=== PATIENT | male | born 1970 | race African-American/Black ===

== ENCOUNTER → 2017-05-10 | Outpatient (CLI) | payer MEDICARE ==
[2015-05-09 12:44] VITALS: BP 135/87
--- NOTE | 2017-05-11 15:44 | CARD ---
APPROVED REPORT EXAM: Two-dimensional and M-mode echocardiogram with Doppler and color Doppler. Other Information Quality : GoodHR: 75bpm Rhythm : NSR INDICATION Dilated cardiomyopathy RISK FACTORS Obesity 2D DIMENSIONS RVDd3.3 (2.9-3.5cm)Left Atrium(2D)4.6 (1.6-4.0cm) IVSd1.2 (0.7-1.1cm)Aortic Root(2D)3.3 (2.0-3.7cm) LVDd4.4 (3.9-5.9cm)LVOT Diameter2.5 (1.8-2.4cm) PWd1.3 (0.7-1.1cm)LVDs3.7 (2.5-4.0cm) FS (%) 16.3 %SV30.7 ml LVEF(%)35.0 (>50%) Aortic Valve AoV Peak Hood.105.5cm/sAoV VTI18.6cm AO Peak GR.4.5mmHgLVOT Peak Hood.74.5cm/s AO Mean GR.3mmHgAVA (VMAX)3.48cm2 Mitral Valve MV E Ykgtnvbv87.9cm/sMV E Peak Gr.1mmHg MV DECEL [id number] A Zjpvsldp33.2cm/s MV E Mean Gr.1mmHgE/A Ratio0.6 MV A [id number] Pulmonary Valve PV Peak Rcmqrtkx059.8cm/s Pulmonary Vein S1 Femnbajb70.6cm/sD2 Aidgzcxf45.1cm/s PVa [id number] LEFT VENTRICLE The left ventricle is normal size. There is mild concentric left ventricular hypertrophy. Left ventri anastasia systolic function is moderately impaired. The Ejection Fraction is 35%. There is moderate global hypokinesis of the left ventricle. Transmitral Doppler flow pattern is Grade I-abnormal relaxation pa ttern. No left ventricle thrombus noted on this study. RIGHT VENTRICLE The right ventricle is normal size. ATRIA The left atrium is mildly dilated. The right atrium size is normal. The interatrial septum is intact with no evidence for an atrial septal defect or patent foramen ovale as noted on 2-D or Doppler imagi ng. AORTIC VALVE The aortic valve is not well visualized but appears to open adequately. Doppler and Color Flow reveal ed no significant aortic regurgitation. There is no significant aortic valvular stenosis. MITRAL VALVE There is no evidence of mitral valve prolapse. There is no mitral valve stenosis. Doppler and Color F low revealed no mitral valve regurgitation noted. TRICUSPID VALVE Doppler and Color Flow revealed no tricuspid valve regurgitation noted, unable to determine pulmonary artery pressure at exam time. PULMONIC VALVE The pulmonary valve is not well visualized but appears to open adequately. Doppler and Color Flow rev ealed trace pulmonic valvular regurgitation. There is no pulmonic valvular stenosis by spectral Doppl er. GREAT VESSELS The aortic root is normal in size. The ascending aorta is normal in size. The pulmonary artery is nor mal. The IVC is normal in size and collapses >50% with inspiration. PERICARDIAL EFFUSION There is no evidence of significant pericardial effusion. Critical Notification Critical Value: No <Conclusion> Left ventricle systolic function is moderately impaired. The Ejection Fraction is 35%. There is mild concentric left ventricular hypertrophy. Transmitral Doppler flow pattern is Grade I-abnormal relaxation pattern. The left atrium is mildly dilated. The right atrium size is normal. The aortic valve is not well visualized but appears to open adequately. Doppler and Color Flow revealed no mitral valve regurgitation noted. Doppler and Color Flow revealed no tricuspid valve regurgitation noted, unable to determine pulmonary artery pressure at exam time. The pulmonary valve is not well visualized but appears to open adequately. Doppler and Color Flow revealed trace pulmonic valvular regurgitation. There is no pulmonic valvular stenosis by spectral Doppler. There is no evidence of significant pericardial effusion.
== END | disposition home or self-care (01) ==
LOC: ECHO 10:25
PROVIDERS: ATTEND Family Medicine
DX: I42.0 Dilated cardiomyopathy (principal); E66.9 Obesity, unspecified; I51.7 Cardiomegaly
CPT/HCPCS: 93306

== ENCOUNTER 2018-02-10 09:22 | Emergency (ER) | payer MEDICARE ==
[2018-02-10 09:34] LABS: POC GLUCOSE 135 mg/dL (70-99)
[2018-02-10 09:41] LABS: ADD MAN DIFF? NO
[2018-02-10 09:44] LABS: BASO % 1 % (0-3); EOS # 0.1 x10^3/uL (0.0-0.7); EOS % 2 % (0-3); HEMATOCRIT 47.3 % (39.0-53.0); HEMOGLOBIN 16.2 g/dL (13.0-17.5); LYMPH # 1.6 x10^3/uL (1.0-4.8); LYMPH % 27 % (24-48); MEAN CORPUSCULAR HEMOGLOBIN 30 pg (25-35); MEAN CORPUSCULAR HGB CONC 34 g/dL (31-37); MEAN CORPUSCULAR VOLUME 89 fL (79-100); MONO # 0.6 x10^3/uL (0.0-1.1); MONO % 10 % (0-9); NEUT # 3.6 x10^3uL (1.8-7.7); NEUT % 60 % (31-73); PLATELET COUNT 232 x10^3/uL (140-400); RED BLOOD COUNT 5.33 x10^6/uL (4.30-5.70); RED CELL DISTRIBUTION WIDTH 14.1 % (11.5-14.5)
[2018-02-10 09:52] LABS: ANION GAP 6 (6-14); BLOOD UREA NITROGEN 15 mg/dL (8-26); BUN/CREATININE RATIO 15 (6-20); CALCIUM 9.2 mg/dL (8.5-10.1); CARBON DIOXIDE 32 mmol/L (21-32); CHLORIDE 104 mmol/L (98-107); GFR 96.1; GLUCOSE 96 mg/dL (70-99); POTASSIUM 3.3 mmol/L (3.5-5.1); SODIUM 142 mmol/L (136-145)
[2018-02-10 09:58] LABS: ALBUMIN 3.5 g/dL (3.4-5.0); ALBUMIN/GLOBULIN RATIO 0.8 (1.0-1.7); ALK PHOS 130 U/L (46-116); ALT (SGPT) 59 U/L (16-63); AST (SGOT) 45 U/L (15-37); TOTAL BILIRUBIN 0.8 mg/dL (0.2-1.0); TOTAL PROTEIN 7.8 g/dL (6.4-8.2)
[2018-02-10 10:26] LABS: BILIRUBIN,URINE NEGATIVE (NEG); CLARITY,URINE CLEAR; COLOR,URINE YELLOW; GLUCOSE,URINE 100 mg/dL (NEG); NITRITE,URINE NEGATIVE (NEG); PH,URINE 5.5; PROTEIN,URINE NEGATIVE (NEG-TRACE); UROBILINOGEN,URINE 0.2 mg/dL (0.2 mg/dL)
[2018-02-10 10:32] LABS: HYALINE CASTS, URINE FEW /HPF; SQUAMOUS EPITHELIAL CELL,UR OCC /LPF
[2018-02-10 10:33] LABS: RBC,URINE 0 /HPF (0-2); WBC,URINE OCC /HPF (0-4)
[2018-02-10 10:34] LABS: BACTERIA,URINE 0 /HPF (0-FEW)
[2018-02-10 10:42] LABS: POC GLUCOSE 216 mg/dL (70-99)
== END 2018-02-10 10:51 | disposition home or self-care (01) ==
LOC: ER 09:22
DX: E11.649 Type 2 diabetes mellitus with hypoglycemia without coma (principal); E78.00 Pure hypercholesterolemia, unspecified; I11.0 Hypertensive heart disease with heart failure; I50.9 Heart failure, unspecified; Z79.4 Long term (current) use of insulin
CPT/HCPCS: 36415; 80053; 81001; 82962; 85025; 99284

== ENCOUNTER 2018-05-03 12:19 | Inpatient (IN) | payer MEDICARE ==
[~2018-05-03] VITALS: Ht 172.7 cm; Wt 136.1 kg
[2018-05-03 12:54] LABS: BASO % 0 % (0-3); EOS # 0.1 x10^3/uL (0.0-0.7); EOS % 1 % (0-3); HEMATOCRIT 44.7 % (39.0-53.0); HEMOGLOBIN 15.4 g/dL (13.0-17.5); LYMPH # 1.3 x10^3/uL (1.0-4.8); LYMPH % 25 % (24-48); MEAN CORPUSCULAR HEMOGLOBIN 30 pg (25-35); MEAN CORPUSCULAR HGB CONC 34 g/dL (31-37); MEAN CORPUSCULAR VOLUME 88 fL (79-100); MONO # 0.4 x10^3/uL (0.0-1.1); MONO % 8 % (0-9); NEUT # 3.2 x10^3uL (1.8-7.7); NEUT % 65 % (31-73); PLATELET COUNT 196 x10^3/uL (140-400); RED CELL DISTRIBUTION WIDTH 13.8 % (11.5-14.5); WHITE BLOOD COUNT 4.9 x10^3/uL (4.0-11.0)
--- NOTE | 2018-05-03 12:54 | RAD ---
EXAM: Head CT without contrast. HISTORY: Right-sided facial droop. Headache. TECHNIQUE: Computed tomographic images of the head were obtained without contrast. *One or more of the following individualized dose reduction techniques were utilized for this examination: 1. Automated exposure control. 2. Adjustment of the mA and/or kV according to patient size. 3. Use of iterative reconstruction technique. COMPARISON: 01/04/2009. FINDINGS: There is no acute or subacute extra-axial or intraparenchymal hemorrhage. There is no mass effect or midline shift. There is no hydrocephalus. There are areas of decreased attenuation within the cerebral white matter, nonspecific and likely related to chronic small vessel disease. There is focal hypodensity within the right occipital lobe likely due to chronic infarction. The visualized portions of the orbits, paranasal sinuses and mastoid air cells are unremarkable. No suspicious calvarial lesion is seen. IMPRESSION: 1. No acute intracranial finding. Note is made that MRI is more sensitive for acute infarction. 2. 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 3. Subtle areas of hypodensity within the cerebral white, a nonspecific finding which may be artifactual or due to chronic small vessel disease. Electronically signed by: Josselin Doherty MD (05/03/2018 12:51 PM) [id number]
[2018-05-03 13:05] LABS: CALCIUM 9.4 mg/dL (8.5-10.1); CREATININE 0.9 mg/dL (0.7-1.3); GFR 108.5; POTASSIUM 3.6 mmol/L (3.5-5.1)
[2018-05-03 13:13] LABS: ALBUMIN 3.3 g/dL (3.4-5.0); ALBUMIN/GLOBULIN RATIO 0.8 (1.0-1.7); MAGNESIUM 1.8 mg/dL (1.8-2.4); TOTAL BILIRUBIN 0.5 mg/dL (0.2-1.0); TOTAL PROTEIN 7.6 g/dL (6.4-8.2)
[2018-05-03 13:33] LABS: PROTHROMBIN TIME PATIENT 13.4 SEC (11.7-14.0)
--- NOTE | 2018-05-03 13:42 | EKG ---
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
--- NOTE | 2018-05-03 15:29 | PHYS DOC ---
Past Medical History Past Medical History: CHF, Diabetes-Type II, High Cholesterol, Hypertension, Vascular Disease, Other Additional Past Medical Histor: VENOUS INSUFF Past Surgical History: No Surgical History Alcohol Use: None Drug Use: None Adult General Chief Complaint Chief Complaint: FACE PROBLEM HPI HPI Patient is a 47 year old male who presented to ER today for evaluation of headache, left side eye irritation and right side facial droop. Patient denies any fever, no slurred speech, no trouble talking, no trouble walking or any weakness or numbness anywhere. Patient said he started having some headache 2 days ago, had some left eye irritation at the same time. At noon today his family noted that he had right-sided facial droop. So he was brought here for evaluation. Patient denies any chest pain, no trouble breathing. Patient has history of hypertension, diabetic. Review of Systems Review of Systems Constitutional: Denies fever or chills [] Eyes: left eye irritation ,No redness, or eye pain [] HENT: Denies nasal congestion or sore throat [] Respiratory: Denies cough or shortness of breath [] Cardiovascular: No additional information not addressed in HPI [] GI: Denies abdominal pain, nausea, vomiting, bloody stools or diarrhea [] : Denies dysuria or hematuria [] Musculoskeletal: Denies back pain or joint pain [] Integument: Denies rash or skin lesions [] Neurologic: Positive for headache, right side facial droop. Endocrine: Denies polyuria or polydipsia [] All other systems were reviewed and found to be within normal limits, except as documented in this note. Allergies Allergies Allergies Coded Allergies Type Severity Reaction Last Updated Verified No Known Drug Allergies 05/09/15 No Physical Exam Physical Exam Constitutional: Well developed, well nourished, no acute distress, non-toxic appearance. [] HENT: Normocephalic, atraumatic, bilateral external ears normal, oropharynx moist, no oral exudates, nose normal. Positive for right side facial droop, involved right side forehead, patient can close his right eye but not completely shut. Eyes: PERRLA, EOMI, conjunctiva normal, no discharge. Neck: Normal range of motion, no tenderness, supple, no stridor. [] Cardiovascular:Heart rate regular rhythm, no murmur [] Lungs & Thorax: Bilateral breath sounds clear to auscultation [] Abdomen: Bowel sounds normal, soft, no tenderness, no masses, no pulsatile masses. [] Skin: Warm, dry, no erythema, no rash. [] Back: No tenderness, no CVA tenderness. [] Extremities: No tenderness, no cyanosis, no clubbing, ROM intact, no edema. [] Neurologic: Alert and oriented X 3, normal motor function, normal sensory function, PATIENT CAN MOVE ALL EXTREMITIES, NO ALTERED SENSATION, NO SLURRED SPEECH, NO APHASIA, NO DYSARTHRIA. Psychologic: Affect normal, judgement normal, mood normal. [] Current Patient Data Vital Signs Vital Signs Date Time Temp Pulse Resp B/P (MAP) Pulse Ox O2 Delivery O2 Flow Rate FiO2 05/03/18 14:00 78 16 142/86 (104) 96 Room Air 05/03/18 12:31 98.1 98.1 Lab Values Laboratory Tests Test 05/03/18 12:24 05/03/18 12:45 Glucose (Fingerstick) 258 mg/dL (70-99) H White Blood Count 4.9 x10^3/uL (4.0-11.0) Red Blood Count 5.10 x10^6/uL (4.30-5.70) Hemoglobin 15.4 g/dL (13.0-17.5) Hematocrit 44.7 % (39.0-53.0) Mean Corpuscular Volume 88 fL (79-100) Mean Corpuscular Hemoglobin 30 pg (25-35) Mean Corpuscular Hemoglobin Concent 34 g/dL (31-37) Red Cell Distribution Width 13.8 % (11.5-14.5) Platelet Count 196 x10^3/uL (140-400) Neutrophils (%) (Auto) 65 % (31-73) Lymphocytes (%) (Auto) 25 % (24-48) Monocytes (%) (Auto) 8 % (0-9) Eosinophils (%) (Auto) 1 % (0-3) Basophils (%) (Auto) 0 % (0-3) Neutrophils # (Auto) 3.2 x10^3uL (1.8-7.7) Lymphocytes # (Auto) 1.3 x10^3/uL (1.0-4.8) Monocytes # (Auto) 0.4 x10^3/uL (0.0-1.1) Eosinophils # (Auto) 0.1 x10^3/uL (0.0-0.7) Basophils # (Auto) 0.0 x10^3/uL (0.0-0.2) Prothrombin Time 13.4 SEC (11.7-14.0) Prothrombin Time INR 1.1 (0.8-1.1) PTT 25 SEC (24-38) Sodium Level 142 mmol/L (136-145) Potassium Level 3.6 mmol/L (3.5-5.1) Chloride Level 104 mmol/L (98-107) Carbon Dioxide Level 31 mmol/L (21-32) Anion Gap 7 (6-14) Blood Urea Nitrogen 16 mg/dL (8-26) Creatinine 0.9 mg/dL (0.7-1.3) Estimated GFR (Cockcroft-Gault) 108.5 BUN/Creatinine Ratio 18 (6-20) Glucose Level 242 mg/dL (70-99) H Calcium Level 9.4 mg/dL (8.5-10.1) Magnesium Level 1.8 mg/dL (1.8-2.4) Total Bilirubin 0.5 mg/dL (0.2-1.0) Aspartate Amino Transferase (AST) 38 U/L (15-37) H Alanine Aminotransferase (ALT) 67 U/L (16-63) H Alkaline Phosphatase 119 U/L (46-116) H Troponin I Quantitative 0.148 ng/mL (0.000-0.055) Total Protein 7.6 g/dL (6.4-8.2) Albumin 3.3 g/dL (3.4-5.0) L Albumin/Globulin Ratio 0.8 (1.0-1.7) L Laboratory Tests 05/03/18 12:45 Laboratory Tests 05/03/18 12:45 EKG EKG EKG read at 1318 no STEMI, SINUS RHYTHM, RATE OF 77 BPM. Radiology/Procedures Radiology/Procedures [[facility] [address] [place] [address] IMAGING REPORT Signed PATIENT: JUDGE Marek PAGE ACCOUNT: [id number] : 1970 LOCATION: ER AGE: 47 SEX: M EXAM STATUS: REG ER ORD. PHYSICIAN: AUGUST CAMPA DO REASON: HEADACHE, HYPERTENSION, RIGHT SIDE FACIAL DROOP PROCEDURE: CT HEAD WO CONTRAST EXAM: Head CT without contrast. HISTORY: Right-sided facial droop. Headache. TECHNIQUE: Computed tomographic images of the head were obtained without contrast. *One or more of the following individualized dose reduction techniques were utilized for this examination: 1. Automated exposure control. 2. Adjustment of the mA and/or kV according to patient size. 3. Use of iterative reconstruction technique. COMPARISON: 01/04/2009. FINDINGS: There is no acute or subacute extra-axial or intraparenchymal hemorrhage. There is no mass effect or midline shift. There is no hydrocephalus. There are areas of decreased attenuation within the cerebral white matter, nonspecific and likely related to chronic small vessel disease. There is focal hypodensity within the right occipital lobe likely due to chronic infarction. The visualized portions of the orbits, paranasal sinuses and mastoid air cells are unremarkable. No suspicious calvarial lesion is seen. IMPRESSION: 1. No acute intracranial finding. Note is made that MRI is more sensitive for acute infarction. 2. 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 3. Subtle areas of hypodensity within the cerebral white, a nonspecific finding which may be artifactual or due to chronic small vessel disease. Electronically signed by: Josselin Das MD (05/03/2018 12:51 PM) [facility] DICTATED and SIGNED BY: JOSSELIN DAS MD DATE: 05/03/18 1249 ] Impressions: RIGHT SIDE FACIAL DROOP, HEADACHE HTN OCONNOR'S PALSY Course & Med Decision Making Course & Med Decision Making Pertinent Labs and Imaging studies reviewed. (See chart for details) Consulted Neurologist automation developer, Dr. Agrawal who recommended to admit patient, get MRI OF BRAIN WITHOUT AND WITH CONTRAST. Dragon Disclaimer Dragon Disclaimer This electronic medical record was generated, in whole or in part, using a voice recognition dictation system. Departure Departure Impression: Primary Impression: Facial droop Additional Impression: Headache Disposition: ADMITTED INPATIENT Admitting Physician: Juanito Ku Condition: STABLE Referrals: JUANITO KU MD (PCP) Problem Qualifiers AUGUST CAMPA DO May 03, 2018 15:29
[2018-05-03] MEDS ORDERED: GADOBUTROL 7.5 MMOL/7.5 ML VIAL IV ONE ×2 (17:30)
--- NOTE | 2018-05-03 18:31 | RAD ---
Indication: Right-sided facial numbness with facial droop. TECHNIQUE: MRI brain without and with IV contrast COMPARISON: CT head from the same day. FINDINGS: No pathologic extra-axial or intra-axial fluid collection. Mild diffuse cerebral atrophy with ex vacuo dilation of the ventricles. The basal cisterns are within normal limits. Chronic small infarct is seen in the right occipital lobe. No abnormal restricted diffusion in the brain. The cerebellar tonsils are above the level of foramen magnum. No abnormal susceptibility artifact on GRE sequence to suggest calcifications or subacute blood products. Scattered foci of high intensity T2/flair signal is seen in the periventricular and deep white matter, nonspecific. Orbits within normal limits. No large paranasal sinus or mastoid effusions. 7 mm focus of enhancement is seen in the right occipital lobe and the salmeron-white junction. No corresponding T2 or FLAIR signal abnormality seen in this region. 5 mm enhancing focus is seen in the right temporal lobe (series 11 image 12). IMPRESSION: 1. No acute ischemic process. 2. Couple of small subcentimeter enhancing foci in the right occipital and temporal lobe, nonspecific. Differential diagnoses includes vascular malformation/venous anomaly or less likely metastasis in absence of known primary malignancy. Follow-up MRI brain with IV contrast in 4-6 months recommended. 3. Scattered white matter signal abnormality, nonspecific likely secondary to chronic microvascular ischemic disease. Electronically signed by: Mega Sarabia DO (05/03/2018 6:28 PM) [facility]
[2018-05-03 19:30] VITALS: BP 156/99
--- NOTE | 2018-05-03 19:56 | PDOC2 ---
NEUROLOGY CONSULT Date of Admission Date of Admission DATE: 05/03/18 TIME: 19:40 Reason for Consult Reason for Consult: IMPRESSION: Left side facial twitching x 2 days. Right side Romano's palsy x 2 days. Hypertensive urgent, BP 200/125 mmHg. HTN DM. Obesity. Old right occipital infract. Abnormal MRI. No evidence of acute CVA this time. RECOMMENDATIONS/PLAN: ASA 162 mg daily. Prednisone 30 mg daily, decrease 10 mg q 2 days till gone. Acyclovir 400 mg q6h x 7 days. Vit B 1 100 mg daily. Neurontin 100 mg tid. Amlodipine 10 mg daily. Treat DM, control hyperglycemia. Monitoring BP and glucose level. Weight reduction. OT/PT. Discussed with him and his about the side effects of steroids and they understood. HISTORY OF THE PRESENT ILLNESS: This is a 47 year old male who presented to ER today for evaluation of headache, left side eye irritation and right side facial droop. Denies any fever , no slurred speech, no trouble talking, no trouble walking or any weakness or numbness anywhere. Patient said he started having some headache 2 days ago, had some left eye irritation at the same time. At noon today his family noted that he had right-sided facial droop. So he was brought here for evaluation. Patient denies any chest pain, no trouble breathing.Patient stated he has fan sets at the right side of his bed blowing all the nights to his right side of face and body. PAST MEDICAL HISTORY: CHF, Diabetes-Type II, High Cholesterol, Hypertension, Vascular Disease, VENOUS INSUFF PAST SURGERY HISTORY: No major surgery recently. ALLERGY: Reviewed. MEDICATIONS: Refer to [facility] FAMILY HISTORY: Non contributory. SOCIAL HISTORY: Lives with his at home. Denies current smoking, drinking, and illicit drug use. REVIEW OF SYSTEMS: Constitutional: Obesity. Head: No traumatic brain or head injury. Skin: No edema, or rash. Ear: No infection. Eyes: No vision loss or color blindness. Nose: No bleeding or purulent discharges. Hearing: No hearing decrease. Neck: No injury. Cardiac: CHF.HTN, HLD. Pulmonary: No COPD. GI: GERD. Urinary/genital: UTI. Endocrinologic: Diabetes Mellitus, near morbid obesity. Skeletomuscular: No muscular atrophy, deformity. Neurological: see HP. Psychiatric: Denies drug use/abuse. Otherwise, not [id number] review of systems. PHYSICAL EXAMINATION: General appearance is in subacute distress. HEENT: Normocephalic and nontraumatic. Eyes, nose, ears, and throat are unremarkable. Neck is supple. No lymphadenopathy. No crepitus. Cardiovascular: S1, S2, regular rate and rhythm. Pulmonary: Clear to auscultation bilaterally. Abdomen: Bowel sounds are positive. Abdomen is soft, nontender, and nondistended. Extremities: No rash, lesions, or edema. No restriction of range of motion NEUROLOGICAL EXAMINATION: Alert Oriented to time, place and person. PERRL. EOMI. CN: no focal findings. Muscle tone: within normal. Muscle strength: 5 DTR: 2 UE, 1 at knee. Plantar reflex: Flexor response bilaterally Gait: not examined in bed. Sensory exam: no abnormal findings. No cerebellar signs elicited. F-T-N test fine. Current Medications Current Medications Current Medications Gadobutrol (Gadavist) 7 mmol 1X ONCE IV Last administered on 05/03/18at 17:42; Start 05/03/18 at 17:30; Stop 05/03/18 at 17:31; Status DC Gadobutrol (Gadavist) 7 mmol 1X ONCE IV Last administered on 05/03/18at 17:43; Start 05/03/18 at 17:30; Stop 05/03/18 at 17:31; Status DC Prednisone (Prednisone) 30 mg DAILY PO ; Start 05/03/18 at 20:00; Status UNV Acyclovir (Zovirax) 400 mg Q6HRS PO ; Start 05/03/18 at 20:00; Status UNV Gabapentin (Neurontin) 100 mg TID PO ; Start 05/03/18 at 21:00; Status UNV Thiamine Mononitrate (Vitamin B-1) 100 mg DAILY PO ; Start 05/03/18 at 20:00; Status UNV Amlodipine Besylate (Norvasc) 10 mg DAILY PO ; Start 05/03/18 at 20:00; Status UNV Allergies Allergies: Allergies Coded Allergies Type Severity Reaction Last Updated Verified No Known Drug Allergies 05/09/15 No ROS Review of System The patient denies any associated fevers, chills, headache, ear pain, rhinorrhea , sore throat, stiff neck, productive cough, chest pain, shortness of breath, back or flank pain, abdominal pain, nausea, vomiting, diarrhea, constipation, dysuria, rash, numbness, weakness, tingling, incontinence, difficulty ambulating, or diaphoresis. Physical Exam Physical Exam General: Well developed, well nourished, no acute distress, well appearing HEENT: Pupils equally round and reactive to light, EOMI, no discharge, normal conjunctiva Neck: Supple, no nuchal rigidity, no JVD, trachea midline, no tenderness Cardiac: RRR, no murmurs, no gallops, no rubs Chest/Lungs: CTAB, no wheeze, no rhonchi, no crackles Abdomen: soft, non-distended, no guarding, no peritoneal signs, non-tender Back: No tenderness Extremities: no edema, pulses intact, non-tender,capillary refill <3 sec bilateral upper and lower extremities, Neuro: Alert and oriented x 4, no focal deficits, normal speech Vitals Vitals: Vital Signs Date Time Temp Pulse Resp B/P (MAP) Pulse Ox O2 Delivery O2 Flow Rate FiO2 05/03/18 19:30 98.3 72 20 156/99 (118) 98 Room Air 98.3 Labs Labs Laboratory Tests Test 05/03/18 12:24 05/03/18 12:45 05/03/18 16:12 05/03/18 16:45 Glucose (Fingerstick) 258 mg/dL (70-99) 145 mg/dL (70-99) White Blood Count 4.9 x10^3/uL (4.0-11.0) Red Blood Count 5.10 x10^6/uL (4.30-5.70) Hemoglobin 15.4 g/dL (13.0-17.5) Hematocrit 44.7 % (39.0-53.0) Mean Corpuscular Volume 88 fL (79-100) Mean Corpuscular Hemoglobin 30 pg (25-35) Mean Corpuscular Hemoglobin Concent 34 g/dL (31-37) Red Cell Distribution Width 13.8 % (11.5-14.5) Platelet Count 196 x10^3/uL (140-400) Neutrophils (%) (Auto) 65 % (31-73) Lymphocytes (%) (Auto) 25 % (24-48) Monocytes (%) (Auto) 8 % (0-9) Eosinophils (%) (Auto) 1 % (0-3) Basophils (%) (Auto) 0 % (0-3) Neutrophils # (Auto) 3.2 x10^3uL (1.8-7.7) Lymphocytes # (Auto) 1.3 x10^3/uL (1.0-4.8) Monocytes # (Auto) 0.4 x10^3/uL (0.0-1.1) Eosinophils # (Auto) 0.1 x10^3/uL (0.0-0.7) Basophils # (Auto) 0.0 x10^3/uL (0.0-0.2) Prothrombin Time 13.4 SEC (11.7-14.0) Prothromb Time International Ratio 1.1 (0.8-1.1) Activated Partial Thromboplast Time 25 SEC (24-38) Sodium Level 142 mmol/L (136-145) Potassium Level 3.6 mmol/L (3.5-5.1) Chloride Level 104 mmol/L (98-107) Carbon Dioxide Level 31 mmol/L (21-32) Anion Gap 7 (6-14) Blood Urea Nitrogen 16 mg/dL (8-26) Creatinine 0.9 mg/dL (0.7-1.3) Estimated GFR (Cockcroft-Gault) 108.5 BUN/Creatinine Ratio 18 (6-20) Glucose Level 242 mg/dL (70-99) Calcium Level 9.4 mg/dL (8.5-10.1) Magnesium Level 1.8 mg/dL (1.8-2.4) Total Bilirubin 0.5 mg/dL (0.2-1.0) Aspartate Amino Transf (AST/SGOT) 38 U/L (15-37) Alanine Aminotransferase (ALT/SGPT) 67 U/L (16-63) Alkaline Phosphatase 119 U/L (46-116) Troponin I Quantitative 0.148 ng/mL (0.000-0.055) 0.154 ng/mL (0.000-0.055) Total Protein 7.6 g/dL (6.4-8.2) Albumin 3.3 g/dL (3.4-5.0) Albumin/Globulin Ratio 0.8 (1.0-1.7) Laboratory Tests Test 05/03/18 12:24 05/03/18 12:45 05/03/18 16:12 05/03/18 16:45 Glucose (Fingerstick) 258 mg/dL (70-99) 145 mg/dL (70-99) White Blood Count 4.9 x10^3/uL (4.0-11.0) Red Blood Count 5.10 x10^6/uL (4.30-5.70) Hemoglobin 15.4 g/dL (13.0-17.5) Hematocrit 44.7 % (39.0-53.0) Mean Corpuscular Volume 88 fL (79-100) Mean Corpuscular Hemoglobin 30 pg (25-35) Mean Corpuscular Hemoglobin Concent 34 g/dL (31-37) Red Cell Distribution Width 13.8 % (11.5-14.5) Platelet Count 196 x10^3/uL (140-400) Neutrophils (%) (Auto) 65 % (31-73) Lymphocytes (%) (Auto) 25 % (24-48) Monocytes (%) (Auto) 8 % (0-9) Eosinophils (%) (Auto) 1 % (0-3) Basophils (%) (Auto) 0 % (0-3) Neutrophils # (Auto) 3.2 x10^3uL (1.8-7.7) Lymphocytes # (Auto) 1.3 x10^3/uL (1.0-4.8) Monocytes # (Auto) 0.4 x10^3/uL (0.0-1.1) Eosinophils # (Auto) 0.1 x10^3/uL (0.0-0.7) Basophils # (Auto) 0.0 x10^3/uL (0.0-0.2) Prothrombin Time 13.4 SEC (11.7-14.0) Prothromb Time International Ratio 1.1 (0.8-1.1) Activated Partial Thromboplast Time 25 SEC (24-38) Sodium Level 142 mmol/L (136-145) Potassium Level 3.6 mmol/L (3.5-5.1) Chloride Level 104 mmol/L (98-107) Carbon Dioxide Level 31 mmol/L (21-32) Anion Gap 7 (6-14) Blood Urea Nitrogen 16 mg/dL (8-26) Creatinine 0.9 mg/dL (0.7-1.3) Estimated GFR (Cockcroft-Gault) 108.5 BUN/Creatinine Ratio 18 (6-20) Glucose Level 242 mg/dL (70-99) Calcium Level 9.4 mg/dL (8.5-10.1) Magnesium Level 1.8 mg/dL (1.8-2.4) Total Bilirubin 0.5 mg/dL (0.2-1.0) Aspartate Amino Transf (AST/SGOT) 38 U/L (15-37) Alanine Aminotransferase (ALT/SGPT) 67 U/L (16-63) Alkaline Phosphatase 119 U/L (46-116) Troponin I Quantitative 0.148 ng/mL (0.000-0.055) 0.154 ng/mL (0.000-0.055) Total Protein 7.6 g/dL (6.4-8.2) Albumin 3.3 g/dL (3.4-5.0) Albumin/Globulin Ratio 0.8 (1.0-1.7) RA COTO MD May 03, 2018 19:56
[2018-05-03] MEDS: THIAMINE 100 MG TABLET. PO SCH (20:00)
[2018-05-03] MEDS: ACYCLOVIR 200 MG CAPSULE. PO SCH ×2 (21:20→23:34)
[2018-05-03] MEDS: GABAPENTIN 100 MG CAPSULE. PO SCH (21:20)
[2018-05-03] MEDS: amLODIPine BESYLATE 10 MG TABLET PO SCH (21:21)
[2018-05-03] MEDS: predniSONE 10 MG TABLET PO SCH (21:21)
[2018-05-03 21:35] LABS: BILIRUBIN,URINE NEGATIVE (NEG); CLARITY,URINE CLEAR; COLOR,URINE YELLOW; NITRITE,URINE NEGATIVE (NEG); PH,URINE 5.5; PROTEIN,URINE NEGATIVE (NEG-TRACE)
[2018-05-03 21:42] LABS: BACTERIA,URINE 0 /HPF (0-FEW); RBC,URINE 0 /HPF (0-2); SQUAMOUS EPITHELIAL CELL,UR OCC /LPF; WBC,URINE 0 /HPF (0-4)
[2018-05-03 21:47] LABS: BARBITURATES NEG (NEG); BENZODIAZEPINES NEG (NEG); CANNABINOIDS NEG (NEG); COCAINE NEG (NEG); METHADONE NEG (NEG); OPIATES NEG (NEG); PHENCYCLIDINE NEG (NEG)
[2018-05-03 21:48] LABS: AMPHETAMINE/METHAMPHETAMINE NEG (NEG)
[2018-05-03] MEDS ORDERED: PRAV20TA2 PO (22:03)
[2018-05-03] MEDS ORDERED: CITA20TA6 PO (22:03)
[2018-05-03] MEDS ORDERED: CARV25TA2 PO (22:03)
[2018-05-03] MEDS ORDERED: FURO40TA4 PO (22:03)
[2018-05-03] MEDS ORDERED: ALLO300T PO (22:03)
[2018-05-03] MEDS ORDERED: INSU100C4 SQ (22:03)
[2018-05-03] MEDS ORDERED: GABA600T2 PO (22:03)
[2018-05-03] MEDS ORDERED: LISI-334 PO (22:03)
[2018-05-03] MEDS ORDERED: POTA10TA12 PO (22:03)
[2018-05-03] MEDS ORDERED: NPH,100V5 SQ ×2 (22:03)
[2018-05-03] MEDS ORDERED: LEVO75TA5 PO (22:03)
[2018-05-03 23:11] VITALS: BP 158/96
[2018-05-04 03:04] VITALS: BP 153/96
[2018-05-04] MEDS: ACYCLOVIR 200 MG CAPSULE. PO SCH (05:53)
[2018-05-04 07:00] VITALS: BP 169/112
[2018-05-04] MEDS ORDERED: ASPIRIN CHEWABLE 81 MG TABLET. PO SCH (08:00)
[2018-05-04] MEDS: GABAPENTIN 100 MG CAPSULE. PO SCH (08:22)
[2018-05-04] MEDS: amLODIPine BESYLATE 10 MG TABLET PO SCH (08:23)
[2018-05-04] MEDS: THIAMINE 100 MG TABLET. PO SCH (08:23)
[2018-05-04] MEDS: predniSONE 10 MG TABLET PO SCH (08:24)
--- NOTE | 2018-05-04 08:55 | DISCH ---
DISCHARGE INSTRUCTIONS Condition on Discharge Condition on Discharge: Stable Activity After Discharge Activity Instructions for Disc: No restrictions Diet after Discharge Diet after Discharge: Diabetic No Calorie Level Follow-Up Follow up with: dr cali Stephenson w JUANITO KU MD May 04, 2018 08:55
--- NOTE | 2018-05-04 08:58 | PDOC ---
Provider Note Provider Note [id number] JUANITO KU MD May 04, 2018 08:58
[2018-05-04] MEDS ORDERED: LEVOTHYROXINE 75 MCG TABLET PO SCH (09:00)
[2018-05-04] MEDS ORDERED: FUROSEMIDE 40 MG TABLET. PO SCH (09:00)
[2018-05-04] MEDS ORDERED: ALLOPURINOL 300 MG TABLET. PO SCH (09:00)
[2018-05-04] MEDS ORDERED: LISINOPRIL 20 MG TABLET PO SCH (09:00)
[2018-05-04] MEDS ORDERED: CARVEDILOL 12.5 MG TABLET. PO SCH (09:00)
[2018-05-04] MEDS ORDERED: POTASSIUM CHLORIDE 10 MEQ TABLET.ER. PO SCH (09:00)
[2018-05-04] MEDS ORDERED: INSULIN GLARGINE 300 UNITS/3 ML INSULN.PEN. SQ SCH ×2 (09:30→17:00)
[2018-05-04] MEDS ORDERED: predniSONE 10 MG TABLET PO ONE (09:30)
--- NOTE | 2018-05-04 09:41 | SSS ---
ADMIT DATE: 05/04/2018 HOSPITAL SUMMARY: A 47-year-old black male who came in to the hospital with 2 days of headache and then some right-sided facial weakness without any other neurologic findings. CT scan and MRI showed no acute changes with some prior old changes noted. All labs were normal except for the blood sugar mildly elevated. It was felt that this clearly represented Romano's palsy, and the patient was started on prednisone and acyclovir and will be continued and followed as an outpatient. FINAL DIAGNOSIS: Acute right Romano's palsy. OPERATIONS, PROCEDURES, COMPLICATIONS: None. CONSULTATION: Dr. Agrawal. DISPOSITION: Prednisone 60 mg daily for 6 more days and valacyclovir 1 g twice a day for 5 more days. Office followup in 1 week, and continue all home meds the same as he remains hypertensive and poorly controlled diabetic. JUANITO KU MD DR: PATRICIA/any JOB#: [id number] / [id number]
[2018-05-04 11:00] VITALS: BP 159/105
[2018-05-04] MEDS ORDERED: ATORVASTATIN CALCIUM 10 MG TABLET. PO SCH (21:00)
[2018-05-04] MEDS ORDERED: CITALOPRAM 20 MG TABLET. PO SCH (21:00)
[2018-05-04] MEDS ORDERED: GABAPENTIN 300 MG CAPSULE. PO SCH (21:00)
== END 2018-05-04 11:15 | disposition home or self-care (01) | DRG 74 ==
LOC: ER 12:19 → 6 SOUTH 15:25
PROVIDERS: ADMIT Family Medicine; ATTEND Family Medicine
DX: G51.0 Bell's palsy (principal); Z68.42 Body mass index [BMI] 45.0-49.9, adult; I16.0 Hypertensive urgency; E11.65 Type 2 diabetes mellitus with hyperglycemia; E66.9 Obesity, unspecified; E78.00 Pure hypercholesterolemia, unspecified; I11.0 Hypertensive heart disease with heart failure; I50.9 Heart failure, unspecified; Z79.82 Long term (current) use of aspirin; Z79.899 Other long term (current) drug therapy
CPT/HCPCS: 36415; 70450; 70553; 80053; 80061; 80307; 81001; 82962; 83735; 84484; 85025; 85610; 85730; 93005; A9585; J1815; J7512; 99285-25; G0479

== ENCOUNTER → 2018-08-29 | Outpatient (CLI) | payer MEDICARE ==
[~2018-08-29] MED LIST: ALLO300T PO; CARV25TA2 PO; CITA20TA6 PO; FURO40TA4 PO; GABA600T7 PO; GLIM4TAB2 PO; INSU100C4 SQ; LEVO75TA5 PO; LISI-334 PO; NPH,100V5 SQ; POTA10TA12 PO; PRAV20TA2 PO; VENTOLIN HFA18 GM INH
--- NOTE | 2018-08-29 16:26 | KCIC ---
EXAM: Right calf sonogram. HISTORY: Cellulitis. TECHNIQUE: Sonographic imaging of the right calf at the site of a reported wound concern was performed. COMPARISON: None. FINDINGS: There is soft tissue edema within the right calf at the site of concern. No focal fluid collection is seen. IMPRESSION: Soft tissue edema within the right calf at the site of concern. No abscess is seen. Electronically signed by: Josselin Doherty MD (08/29/2018 4:22 PM) [place] [id number]
== END | disposition home or self-care (01) ==
LOC: KCIC US 15:20
PROVIDERS: ATTEND Internal Medicine
DX: L03.115 Cellulitis of right lower limb (principal)
CPT/HCPCS: 76881

== ENCOUNTER → 2018-09-11 | Outpatient (CLI) | payer MEDICARE ==
[2018-09-06 08:22] VITALS: BP 141/81
[~2018-09-11] MED LIST changes: +GABA600T2 PO; -GABA600T7 PO
--- NOTE | 2018-09-12 18:08 | PATHOLOGY ---
[facility] Accession Number: [id number] . 01 Material submitted: . RIGHT LEG WOUND TISSUE SAMPLE . 01 Clinician provided ICD-10: L97.211 . 01 Clinical history: . R leg wound . 02 Diagnosis: Skin, right leg wound punch biopsy: - Ulceration, necrosis, and acute inflammation of skin with underlying granulation tissue showing mild acute and chronic inflammation and recent hemorrhage. (JPM:robi; 09/12/2018) QMS/09/12/2018 . 02 Comment: There is no evidence of a lymphocytic vasculitis. There is no evidence of malignancy. (JPM:robi; 09/12/2018) . 02 Electronically signed: . Patel Castano MD, Pathologist NPI- [id number] . 01 Gross description: . The specimen is received in formalin, labeled "Judge Ismael, R leg wound" and consists of a 0.4 x 0.4 x 0.4 cm salmeron-chaparro skin punch. It is inked, bisected, and entirely submitted in A1. (SDY; 09/11/2018) SYU/SYU . 02 Pathologist provided ICD-10: L97.211 . 02 CPT . 467621 Specimen Comment: A courtesy copy of this report has been sent to Specimen Comment: [phone], . Specimen Comment: Report sent to / DR KU Specimen Comment: A duplicate report has been generated due to demographic updates. Performed at: 01 [facility] [address], [place] [id number] MD Tom Ayala MD Phone: [phone] Performed at: 02 [facility] [address] [place], [place] [id number] MD Patel Castano MD Phone: [phone]
== END | disposition home or self-care (01) ==
LOC: PMGWOUND 08:16
PROVIDERS: ATTEND Emergency Medicine Undersea and Hyperbaric Medicine
DX: E11.622 Type 2 diabetes mellitus with other skin ulcer (principal); L97.211 Non-pressure chronic ulcer of right calf limited to breakdown of skin; E11.65 Type 2 diabetes mellitus with hyperglycemia; E11.40 Type 2 diabetes mellitus with diabetic neuropathy, unspecified; I11.0 Hypertensive heart disease with heart failure; I50.9 Heart failure, unspecified; E03.8 Other specified hypothyroidism; E66.01 Morbid (severe) obesity due to excess calories; Z68.42 Body mass index [BMI] 45.0-49.9, adult; Z79.4 Long term (current) use of insulin
CPT/HCPCS: 11100; 11101; 11104; 11105; 87071; 87075; 87102; 88305

== ENCOUNTER → 2018-09-18 | Outpatient (CLI) | payer MEDICARE ==
[2018-09-06 08:22] VITALS: BP 141/81
== END | disposition home or self-care (01) ==
LOC: PMGWOUND 08:22
PROVIDERS: ATTEND Nurse Practitioner Family
DX: E11.622 Type 2 diabetes mellitus with other skin ulcer (principal); L97.211 Non-pressure chronic ulcer of right calf limited to breakdown of skin; E11.65 Type 2 diabetes mellitus with hyperglycemia; I11.0 Hypertensive heart disease with heart failure; I50.9 Heart failure, unspecified; E11.40 Type 2 diabetes mellitus with diabetic neuropathy, unspecified; E03.8 Other specified hypothyroidism; E66.01 Morbid (severe) obesity due to excess calories; Z68.42 Body mass index [BMI] 45.0-49.9, adult; Z79.4 Long term (current) use of insulin
CPT/HCPCS: 97597

== ENCOUNTER → 2018-09-25 | Outpatient (CLI) | payer MEDICARE ==
[2018-09-06 08:22] VITALS: BP 141/81
== END | disposition home or self-care (01) ==
LOC: PMGWOUND 08:21
PROVIDERS: ATTEND Emergency Medicine Undersea and Hyperbaric Medicine
DX: E11.622 Type 2 diabetes mellitus with other skin ulcer (principal); L97.211 Non-pressure chronic ulcer of right calf limited to breakdown of skin; L88 Pyoderma gangrenosum; E11.40 Type 2 diabetes mellitus with diabetic neuropathy, unspecified; I50.9 Heart failure, unspecified; E11.65 Type 2 diabetes mellitus with hyperglycemia; I11.0 Hypertensive heart disease with heart failure; E03.8 Other specified hypothyroidism; E66.01 Morbid (severe) obesity due to excess calories; Z68.42 Body mass index [BMI] 45.0-49.9, adult; Z79.4 Long term (current) use of insulin
CPT/HCPCS: 99214; G0463

== ENCOUNTER → 2018-09-27 | Outpatient (CLI) | payer MEDICARE ==
[2018-09-06 08:22] VITALS: BP 141/81
[~2018-09-27] MED LIST changes: -GABA600T2 PO; +GABA600T7 PO
--- NOTE | 2018-09-27 16:07 | RAD ---
Right lower extremity arterial Doppler ultrasound HISTORY: DX: Diabetic; Non healing Right Posterior Prox Calf ulcer IMP: All triphasic waveforms; No significant stenosis seen TECHNIQUE: Color Doppler, grayscale and duplex analysis performed of the right lower extremity arterial structures, from the common femoral artery through the runoff vessels. COMPARISON: None are available Findings: All velocity measurements are in centimeters per second. Triphasic waveforms are identified throughout the right lower extremity arterial system. Velocities range from 50 through 121. There is an abrupt elevation of velocity from the anterior tibial artery, 50 cm/s, to the dorsalis pedis artery, 121 cm/s, which can be a sign of stenosis. However, no visible occlusion or high-grade narrowing is visualized. IMPRESSION: 1. Triphasic waveforms throughout without evidence of occlusive disease. 2. Note there is velocity elevation at the dorsalis pedis artery, could indicate a proximal stenosis. Electronically signed by: Syed Mario MD (09/27/2018 4:02 PM) [facility]
--- NOTE | 2018-09-27 16:44 | RAD ---
Duplex ultrasound of the right lower extremity. HISTORY: Nonhealing ulcer. Duplex ultrasound was used to evaluate the right lower extremity. Proximal greater saphenous vein is 1 cm at its origin. The vein measures 7 mm in proximal thigh. There is saphenous vein measures 6.6 mm in the mid thigh and distal thigh. Greater saphenous vein measures 6.7 mm in the proximal calf and 5.5 mm in the distal calf. Valsalva maneuver showed 2 seconds of reflux with Valsalva in the proximal greater saphenous vein. Ultrasound showed nonocclusive thrombus in the mid greater saphenous vein, the vein compresses by approximately one half. There is mild thrombus at the distal thigh in the greater saphenous vein. There is partial thrombosis of the greater saphenous vein in the proximal calf. Greater saphenous vein in the calf is tortuous. Superficial edema is noted in the calf. There is venous reflux with standing. IMPRESSION: 1. Partial venous thrombosis from the mid thigh to the calf in the greater saphenous vein. 2. Venous insufficiency greater saphenous vein. Electronically signed by: Win Treviño MD (09/27/2018 4:40 PM) [facility]
--- NOTE | 2018-09-27 16:51 | RAD ---
Examination: Ankle brachial index HISTORY: History of nonhealing calf ulcer COMPARISON: None available. FINDINGS: The brachial artery pressure on the right is 144 mmHg. The left brachial artery pressure the left is 138 mmHg. The right REGISTERED NURSE [employer] CASE MANAGER is 197 mmHg. The left REGISTERED NURSE [employer] CASE MANAGER is 193 mmHg. The right DPA is 204 mm Hg. The left DPA is 199 mmHg. The right ankle brachial index is 1.2. The left ankle brachial index is 1.3. IMPRESSION: Normal ankle-brachial indices. Electronically signed by: Horacio Boss MD (09/27/2018 4:46 PM) [id number]
== END | disposition home or self-care (01) ==
LOC: US 13:30
PROVIDERS: ATTEND Nurse Practitioner Family
DX: I87.2 Venous insufficiency (chronic) (peripheral) (principal); I82.90 Acute embolism and thrombosis of unspecified vein; R60.0 Localized edema; E11.621 Type 2 diabetes mellitus with foot ulcer; L97.219 Non-pressure chronic ulcer of right calf with unspecified severity; Z87.891 Personal history of nicotine dependence
CPT/HCPCS: 93922; 93926; 93971

== ENCOUNTER → 2018-10-02 | Outpatient (CLI) | payer MEDICARE ==
[2018-09-06 08:22] VITALS: BP 141/81
== END | disposition home or self-care (01) ==
LOC: PMGWOUND 08:19
PROVIDERS: ATTEND Emergency Medicine Undersea and Hyperbaric Medicine
DX: E11.622 Type 2 diabetes mellitus with other skin ulcer (principal); L97.211 Non-pressure chronic ulcer of right calf limited to breakdown of skin; L88 Pyoderma gangrenosum; E11.40 Type 2 diabetes mellitus with diabetic neuropathy, unspecified; I11.0 Hypertensive heart disease with heart failure; I50.9 Heart failure, unspecified; E03.8 Other specified hypothyroidism; E66.01 Morbid (severe) obesity due to excess calories; I87.2 Venous insufficiency (chronic) (peripheral); Z68.42 Body mass index [BMI] 45.0-49.9, adult; Z79.4 Long term (current) use of insulin; Z87.891 Personal history of nicotine dependence
CPT/HCPCS: 99213

== ENCOUNTER → 2018-10-08 | Outpatient (CLI) | payer MEDICARE ==
[2018-09-06 08:22] VITALS: BP 141/81
--- NOTE | 2018-10-08 08:34 | RAD ---
Right lower extremity venous ultrasound, 10/08/2018 : History: Follow-up greater saphenous vein thrombus Duplex evaluation including grayscale, color flow and spectral Doppler analysis was performed. The femoral and popliteal veins show no filling defects to suggest DVT. The visualized deep veins in the right calf are unremarkable. The greater saphenous vein was also examined. There is nonocclusive thrombus in that vessel from the mid thigh level down to the mid calf. Similar findings were present on 09/27/2018. IMPRESSION: 1. There is no sonographic evidence of deep vein thrombosis in the right lower extremity. 2. Unchanged nonocclusive thrombus in the right greater saphenous vein. Electronically signed by: Jaren Milligan MD (10/08/2018 8:30 AM) [facility]
== END | disposition home or self-care (01) ==
LOC: US 06:20
PROVIDERS: ATTEND Family Medicine
DX: I82.811 Embolism and thrombosis of superficial veins of right lower extremity (principal)
CPT/HCPCS: 93971

== ENCOUNTER → 2018-10-09 | Outpatient (CLI) | payer MEDICARE ==
[2018-09-06 08:22] VITALS: BP 141/81
== END | disposition home or self-care (01) ==
LOC: PMGWOUND 08:17
PROVIDERS: ATTEND Emergency Medicine Undersea and Hyperbaric Medicine
DX: E11.622 Type 2 diabetes mellitus with other skin ulcer (principal); L97.211 Non-pressure chronic ulcer of right calf limited to breakdown of skin; L88 Pyoderma gangrenosum; E11.65 Type 2 diabetes mellitus with hyperglycemia; E11.40 Type 2 diabetes mellitus with diabetic neuropathy, unspecified; I11.0 Hypertensive heart disease with heart failure; I50.9 Heart failure, unspecified; E03.8 Other specified hypothyroidism; I87.2 Venous insufficiency (chronic) (peripheral); E66.01 Morbid (severe) obesity due to excess calories; Z68.42 Body mass index [BMI] 45.0-49.9, adult; Z79.4 Long term (current) use of insulin; Z87.891 Personal history of nicotine dependence
CPT/HCPCS: 97597

== ENCOUNTER → 2018-10-16 | Outpatient (CLI) | payer MEDICARE ==
[2018-09-06 08:22] VITALS: BP 141/81
== END | disposition home or self-care (01) ==
LOC: PMGWOUND 08:16
PROVIDERS: ATTEND Emergency Medicine Undersea and Hyperbaric Medicine
DX: E11.622 Type 2 diabetes mellitus with other skin ulcer (principal); L97.211 Non-pressure chronic ulcer of right calf limited to breakdown of skin; L88 Pyoderma gangrenosum; E11.40 Type 2 diabetes mellitus with diabetic neuropathy, unspecified; E11.65 Type 2 diabetes mellitus with hyperglycemia; I11.0 Hypertensive heart disease with heart failure; I50.9 Heart failure, unspecified; E03.8 Other specified hypothyroidism; I87.2 Venous insufficiency (chronic) (peripheral); E66.01 Morbid (severe) obesity due to excess calories; Z68.42 Body mass index [BMI] 45.0-49.9, adult; Z79.4 Long term (current) use of insulin; Z87.891 Personal history of nicotine dependence; Z86.718 Personal history of other venous thrombosis and embolism
CPT/HCPCS: 97597

== ENCOUNTER → 2018-10-23 | Outpatient (CLI) | payer MEDICARE ==
[2018-09-06 08:22] VITALS: BP 141/81
== END | disposition home or self-care (01) ==
LOC: PMGWOUND 08:30
PROVIDERS: ATTEND Emergency Medicine Undersea and Hyperbaric Medicine
DX: E11.622 Type 2 diabetes mellitus with other skin ulcer (principal); L97.211 Non-pressure chronic ulcer of right calf limited to breakdown of skin; L88 Pyoderma gangrenosum; E11.65 Type 2 diabetes mellitus with hyperglycemia; E11.40 Type 2 diabetes mellitus with diabetic neuropathy, unspecified; I11.0 Hypertensive heart disease with heart failure; I50.9 Heart failure, unspecified; E78.5 Hyperlipidemia, unspecified; E03.8 Other specified hypothyroidism; I87.2 Venous insufficiency (chronic) (peripheral); E66.01 Morbid (severe) obesity due to excess calories; Z68.42 Body mass index [BMI] 45.0-49.9, adult; Z79.4 Long term (current) use of insulin; Z87.891 Personal history of nicotine dependence; Z86.718 Personal history of other venous thrombosis and embolism
CPT/HCPCS: 99214; G0463

== ENCOUNTER → 2018-11-02 | Outpatient (CLI) | payer MEDICARE ==
[2018-09-06 08:22] VITALS: BP 141/81
--- NOTE | 2018-11-02 11:04 | RAD ---
Right lower extremity venous ultrasound, 11/02/2018 : History: Follow-up greater saphenous vein thrombus Duplex evaluation including grayscale, color flow and spectral Doppler analysis was performed. The femoral and popliteal veins show no filling defects to suggest DVT. The visualized deep veins in the right calf are unremarkable. The greater saphenous vein was also examined. There is nonocclusive thrombus from the mid thigh level down to the mid calf. Similar findings were present on the previous study. IMPRESSION: 1. There is no sonographic evidence of deep vein thrombosis in the right lower extremity. 2. Unchanged nonocclusive thrombus in the right greater saphenous vein. Electronically signed by: Jaren Milligan MD (11/02/2018 11:01 AM) [facility]
== END | disposition home or self-care (01) ==
LOC: US 10:48
PROVIDERS: ATTEND Internal Medicine
DX: I82.890 Acute embolism and thrombosis of other specified veins (principal)
CPT/HCPCS: 93971

== ENCOUNTER → 2018-11-06 | Outpatient (CLI) | payer MEDICARE ==
[2018-09-06 08:22] VITALS: BP 141/81
== END | disposition home or self-care (01) ==
LOC: PMGWOUND 09:48
PROVIDERS: ATTEND Emergency Medicine Undersea and Hyperbaric Medicine
DX: E11.622 Type 2 diabetes mellitus with other skin ulcer (principal); L97.212 Non-pressure chronic ulcer of right calf with fat layer exposed; E11.65 Type 2 diabetes mellitus with hyperglycemia; E11.40 Type 2 diabetes mellitus with diabetic neuropathy, unspecified; L88 Pyoderma gangrenosum; I11.0 Hypertensive heart disease with heart failure; I50.9 Heart failure, unspecified; E78.5 Hyperlipidemia, unspecified; E03.8 Other specified hypothyroidism; I87.2 Venous insufficiency (chronic) (peripheral); I25.10 Atherosclerotic heart disease of native coronary artery without angina pectoris; E66.01 Morbid (severe) obesity due to excess calories; Z68.42 Body mass index [BMI] 45.0-49.9, adult; Z79.4 Long term (current) use of insulin; Z87.891 Personal history of nicotine dependence; Z86.718 Personal history of other venous thrombosis and embolism
CPT/HCPCS: 11042

== ENCOUNTER → 2019-07-04 | Outpatient (CLI) | payer MEDICARE ==
[2018-09-06 08:22] VITALS: BP 141/81
[~2019-07-04] MED LIST changes: -GLIM4TAB2 PO; +GLIM4TAB4 PO
--- NOTE | 2019-07-05 08:49 | KCIC ---
CHEST PA LATERAL History: Recurrence of breath Comparison: 05/05/2010 two-view chest x-ray exam. Findings: Frontal and lateral views of chest were obtained. The cardiomediastinal silhouette is normal. Pulmonary vasculature is normal. Subtle interstitial thickening of the lung kang are again seen. Calcified granulomas present. No pleural effusion or pneumothorax is seen. There is no acute bone abnormality. IMPRESSION: No acute cardiopulmonary process. Electronically signed by: Reginaldo Mendiola MD (07/05/2019 8:46 AM) [facility]
== END | disposition home or self-care (01) ==
LOC: KCIC 10:43
PROVIDERS: ATTEND Family Medicine
DX: J92.9 Pleural plaque without asbestos (principal); J84.10 Pulmonary fibrosis, unspecified
CPT/HCPCS: 71046

== ENCOUNTER → 2019-07-25 | Outpatient (CLI) | payer MEDICARE ==
[2018-09-06 08:22] VITALS: BP 141/81
[~2019-07-25] MED LIST changes: -POTA10TA12 PO; +POTASSIUM CHLO10 ME1 PO
--- NOTE | 2019-07-25 09:38 | CARD ---
MR#: [id number] Date of Study: 07/25/2019 Ordering Physician: RANI SHEEHAN, Referring Physician: RANI SHEEHAN, Tech: Lorraine Durán [facility] APPROVED REPORT EXAM: Two-dimensional and M-mode echocardiogram with Doppler and color Doppler. Other Information Quality : Fair INDICATION Cardiomyopathy Morbid Obesity 2D DIMENSIONS RVDd2.9 (2.9-3.5cm)Left Atrium(2D)3.8 (1.6-4.0cm) IVSd1.1 (0.7-1.1cm)Aortic Root(2D)3.2 (2.0-3.7cm) LVDd6.3 (3.9-5.9cm)LVOT Diameter2.5 (1.8-2.4cm) PWd1.1 (0.7-1.1cm)LVDs4.9 (2.5-4.0cm) FS (%) 22.2 %SV89.7 ml LVEF(%)43.8 (>50%) Aortic Valve AoV Peak Hood.123.4cm/sAoV VTI23.1cm AO Peak GR.6.1mmHgLVOT Peak Hood.87.0cm/s AO Mean GR.3mmHgAVA (VMAX)3.54cm2 HOMA (VTI)3.80cm2 Mitral Valve MV E Aannsyta63.4cm/sMV DECEL HWRK532od MV A Dxcqejbm883.8cm/sE/A Ratio0.6 Pulmonary Vein S1 Qdzthcjd31.1cm/sD2 Rhriqrvu12.4cm/s LEFT VENTRICLE The Left Ventricle is mildly dilated. There is normal left ventricular wall thickness. Left ventricle systolic function is moderately impaired. The Ejection Fraction is 35-40%. There is moderate global hypokinesis of the left ventricle. Transmitral Doppler flow pattern is Grade I-abnormal relaxation pa ttern. RIGHT VENTRICLE The right ventricle is normal size. The right ventricular systolic function is normal. ATRIA The left atrium size is normal. The right atrium size is normal. The interatrial septum is intact wit h no evidence for an atrial septal defect or patent foramen ovale as noted on 2-D or Doppler imaging. AORTIC VALVE The aortic valve is calcified but opens well. Doppler and Color Flow revealed no significant aortic r egurgitation. There is no significant aortic valvular stenosis. MITRAL VALVE The mitral valve is normal in structure and function. There is no evidence of mitral valve prolapse. There is no mitral valve stenosis. Doppler and Color-flow revealed trace mitral regurgitation. TRICUSPID VALVE The tricuspid valve is normal in structure and function. Doppler and Color Flow revealed no tricuspid valve regurgitation noted. There is no tricuspid valve stenosis. PULMONIC VALVE The pulmonic valve is not well visualized. Doppler and Color Flow revealed no pulmonic valvular regur gitation. There is no pulmonic valvular stenosis. GREAT VESSELS The aortic root is normal in size. The ascending aorta is mildly dilated at 3.5 cm. The IVC was not v isualized. PERICARDIAL EFFUSION There is no evidence of significant pericardial effusion. Critical Notification Critical Value: No <Conclusion> Left ventricle systolic function is moderately impaired. The Ejection Fraction is 35-40%. Transmitral Doppler flow pattern is Grade I-abnormal relaxation pattern. Trace mitral regurgitation. There is no evidence of significant pericardial effusion. Signed by : Cain Beverly, Electronically Approved : 07/25/2019 09:38:32
== END | disposition home or self-care (01) ==
LOC: ECHO 08:00
PROVIDERS: ATTEND Internal Medicine Cardiovascular Disease
DX: I35.8 Other nonrheumatic aortic valve disorders (principal); I25.10 Atherosclerotic heart disease of native coronary artery without angina pectoris; I42.9 Cardiomyopathy, unspecified; E66.01 Morbid (severe) obesity due to excess calories
CPT/HCPCS: 93306

== ENCOUNTER → 2020-03-20 | Outpatient (CLI) | payer MEDICARE ==
[2018-09-06 08:22] VITALS: BP 141/81
[~2020-03-20] MED LIST changes: -GLIM4TAB4 PO; +GLIM4TAB8 PO
--- NOTE | 2020-03-20 16:38 | CARD ---
MR#: [id number] Date of Study: 03/20/2020 Ordering Physician: RANI SHEEHAN, Referring Physician: RANI SHEEHAN, Tech: Giselle Yuen APPROVED REPORT EXAM: Two-dimensional and M-mode echocardiogram with Doppler and color Doppler. Other Information Quality : AverageHR: 76bpm Technically limited study due to body habitus. INDICATION Cardiomyopathy RISK FACTORS Hypertension Diabetes 2D DIMENSIONS RVDd4.8 (2.9-3.5cm)Left Atrium(2D)3.9 (1.6-4.0cm) IVSd0.9 (0.7-1.1cm)Aortic Root(2D)3.2 (2.0-3.7cm) LVDd4.7 (3.9-5.9cm)LVOT Diameter2.1 (1.8-2.4cm) PWd1.0 (0.7-1.1cm)LVDs3.3 (2.5-4.0cm) FS (%) 28.2 %SV54.6 ml LVEF(%)54.6 (>50%) Aortic Valve AoV Peak Hood.119.2cm/sAoV VTI20.7cm AO Peak GR.5.7mmHgLVOT Peak Hood.85.3cm/s LVOT VTI 16.22cmAO Mean GR.4mmHg HOMA (VMAX)1.39xn7IEW (VTI)2.70cm2 Mitral Valve MV E Tnllbsbo48.7cm/sMV DECEL [id number] MV A Lfjhklkk14.8cm/sMV E Mean Gr.1mmHg MV DHT61ewM/A Ratio0.6 MVA (PHT)2.30cm2 Pulmonary Valve PV Peak Jthprzrt48.3cm/sPV Peak Grad.4mmHg LEFT VENTRICLE The left ventricle is normal size. There is borderline concentric left ventricular hypertrophy. The l eft ventricular systolic function is mildly decreased. The Ejection Fraction is 45-50%. There is mild global hypokinesis. Transmitral Doppler flow pattern is Grade I-abnormal relaxation pattern. RIGHT VENTRICLE The right ventricle is mildly dilated. There is normal right ventricular wall thickness. The right ve ntricular systolic function is normal. ATRIA The left atrium size is normal. The right atrium is mildly dilated. Atrial septum not well visualized . AORTIC VALVE The aortic valve is thickened but opens well. Doppler and Color Flow revealed no significant aortic r egurgitation. There is no significant aortic valvular stenosis. Calculated aortic valve area is 2.4 c m2 with maximum pressure gradient of 7 mmHg and mean pressure gradient of 4 mmHg. MITRAL VALVE The mitral valve is normal in structure and function. There is no evidence of mitral valve prolapse. There is no mitral valve stenosis. Doppler and Color Flow revealed no mitral valve regurgitation note d. TRICUSPID VALVE The tricuspid valve is normal in structure and function. Doppler and Color Flow revealed trace tricus pid regurgitation. There is no tricuspid valve stenosis. PULMONIC VALVE The pulmonic valve is not well visualized. Doppler and Color Flow revealed no pulmonic valvular regur gitation. There is no pulmonic valvular stenosis. GREAT VESSELS The aortic root is normal in size. The ascending aorta is normal in size. The IVC was not visualized. PERICARDIAL EFFUSION There is no evidence of significant pericardial effusion. Critical Notification Critical Value: No <Conclusion> The left ventricular systolic function is mildly decreased. The Ejection Fraction is 45-50%. There is mild global hypokinesis. Signed by : Kemal Farrell, Electronically Approved : 03/20/2020 16:37:59
== END | disposition home or self-care (01) ==
LOC: ECHO 10:36
PROVIDERS: ATTEND Internal Medicine Cardiovascular Disease
DX: I51.7 Cardiomegaly (principal); I42.9 Cardiomyopathy, unspecified
CPT/HCPCS: 93306

== ENCOUNTER → 2020-09-11 | Outpatient (CLI) | payer MEDICARE ==
[2018-09-06 08:22] VITALS: BP 141/81
--- NOTE | 2020-09-11 16:45 | KCIC ---
XR KNEE 3 VIEWS 09/11/2020 11:08 AM INDICATION: Bilateral knee pain. COMPARISON: None available. TECHNIQUE: 3 views of the right and 3 views the left knee are provided. FINDINGS/ IMPRESSION: 1. Left knee: There is mild to moderate medial and mild lateral femorotibial joint space narrowing an d mild patellofemoral joint space with marginal osteophytosis compatible with mild to moderate osteop orosis of the knee. No significant knee joint effusion. No acute fracture or dislocation. 2. Right knee: There is moderate medial femorotibial and mild lateral femorotibial joint space narrow ing with mild to moderate patellofemoral joint space narrowing and marginal osteophytosis compatible with mild to moderate osteoarthrosis. No significant knee joint effusion. There is an osteochondroma along the distal femoral diaphysis measuring 10 mm. Electronically signed by: Lisa Reaves MD (09/11/2020 4:43 PM) [id number]
== END ==
LOC: KCIC 11:03
PROVIDERS: ATTEND Family Medicine
DX: D16.21 Benign neoplasm of long bones of right lower limb (principal); M25.561 Pain in right knee; M25.562 Pain in left knee
CPT/HCPCS: 73562

== ENCOUNTER → 2020-11-26 | Outpatient (CLI) | payer MEDICARE ==
[2018-09-06 08:22] VITALS: BP 141/81
[~2020-11-26] MED LIST changes: -LISI-334 PO; +LISI20TA18 PO; +PERFLUTREN PROTEIN-A MICROSPHR 0.22 MG/ML 3 ML VIAL. IV ONE
--- NOTE | 2020-11-26 17:10 | CARD ---
MR#: [id number] Date of Study: 11/26/2020 Ordering Physician: FAIZAN RODARTE, Referring Physician: FAIZAN RODARTE, Tech: Sabrina Pop [facility] APPROVED REPORT EXAM: Two-dimensional and M-mode echocardiogram with Doppler and color Doppler. Other Information Quality : Technically LimitedHR: 75bpm Rhythm : NSR INDICATION Cardiomyopathy Echo Enhancing Agent Indication: Endocardial border delineation RISK FACTORS Hypertension Obesity Hyperlipidemia Diabetes 2D DIMENSIONS Left Atrium(2D)4.6 (1.6-4.0cm)IVSd1.2 (0.7-1.1cm) Aortic Root(2D)3.5 (2.0-3.7cm)LVDd5.3 (3.9-5.9cm) LVOT Diameter2.5 (1.8-2.4cm)PWd1.1 (0.7-1.1cm) LVDs4.2 (2.5-4.0cm)FS (%) 20.0 % SV54.1 ml Aortic Valve AoV Peak Hood.155.8cm/sAoV VTI35.2cm AO Peak GR.9.7mmHgLVOT Peak Hood.82.5cm/s AO Mean GR.4mmHgAVA (VMAX)2.54cm2 Mitral Valve MV E Vharuhyi41.1cm/sMV DECEL PSBI854ys MV A Symhbpjn79.2cm/sE/A Ratio0.8 Pulmonary Valve PV Peak Efhxhztp648.1cm/s LEFT VENTRICLE The Left Ventricle is mildly dilated. There is normal left ventricular wall thickness. The systolic f unction is mildly impaired. Ejection fraction is 40-45%. There is mild global hypokinesis of the lef t ventricle. Transmitral Doppler flow pattern is Grade I-abnormal relaxation pattern. RIGHT VENTRICLE The right ventricle is normal size. There is normal right ventricular wall thickness. The right ventr icular systolic function is normal. ATRIA The left atrium size is normal. The right atrium size is normal. AORTIC VALVE The aortic valve is normal in structure and function. Doppler and Color Flow revealed no significant aortic regurgitation. There is no significant aortic valvular stenosis. MITRAL VALVE The mitral valve is normal in structure and function. There is no evidence of mitral valve prolapse. There is no mitral valve stenosis. Doppler and Color-flow revealed trace mitral regurgitation. TRICUSPID VALVE The tricuspid valve is normal in structure and function. Doppler and Color Flow revealed no tricuspid valve regurgitation noted. There is no tricuspid valve stenosis. PULMONIC VALVE The pulmonary valve is normal in structure and function. Doppler and Color Flow revealed no pulmonic valvular regurgitation. GREAT VESSELS The aortic root is borderline in size. The IVC is normal in size and collapses <50% with inspiration. PERICARDIAL EFFUSION There is no evidence of significant pericardial effusion. Critical Notification Critical Value: No <Conclusion> The Left Ventricle is mildly dilated. The systolic function is mildly impaired. Ejection fraction is 40-45%. There is mild global hypokinesis of the left ventricle. Doppler and Color Flow revealed no significant aortic regurgitation. There is no significant aortic valvular stenosis. Doppler and Color-flow revealed trace mitral regurgitation. Doppler and Color Flow revealed no tricuspid valve regurgitation noted. Signed by : Faizan Rodarte MD Electronically Approved : 11/26/2020 17:09:53
== END ==
LOC: ECHO 07:29
PROVIDERS: ATTEND Internal Medicine Cardiovascular Disease
DX: I42.9 Cardiomyopathy, unspecified (principal)
CPT/HCPCS: C8929; Q9956

== ENCOUNTER → 2021-11-05 | Outpatient (CLI) | payer MEDICARE ==
[2018-09-06 08:22] VITALS: BP 141/81
[~2021-11-05] MED LIST changes: -PERFLUTREN PROTEIN-A MICROSPHR 0.22 MG/ML 3 ML VIAL. IV ONE
--- NOTE | 2021-11-05 11:00 | CARD ---
MR#: [id number] Date of Study: 11/05/2021 Ordering Physician: RANI SHEEHAN, Referring Physician: RANI SHEEHAN, Tech: Sai Paul [facility] APPROVED REPORT EXAM: Two-dimensional and M-mode echocardiogram with Doppler and color Doppler. Other Information Quality : FairHR: 71bpm Rhythm : NSRTechnically limited study due to body habitus. INDICATION Cardiomyopathy RISK FACTORS Hypertension Diabetes 2D DIMENSIONS Left Atrium(2D)4.9 (1.6-4.0cm)IVSd1.1 (0.7-1.1cm) Aortic Root(2D)3.7 (2.0-3.7cm)LVDd5.5 (3.9-5.9cm) LVOT Diameter2.3 (1.8-2.4cm)PWd1.1 (0.7-1.1cm) LA Fguqrx46 (18-58mL)LVDs3.8 (2.5-4.0cm) FS (%) 31.2 %SV86.4 ml LVEF(%)58.4 (>50%) Aortic Valve AoV Peak Hood.135.7cm/sAoV VTI22.2cm AO Peak GR.7.4mmHgLVOT Peak Hood.74.8cm/s LVOT VTI 17.21cmAO Mean GR.4mmHg HOMA (VMAX)1.43lq3CUV (VTI)3.17cm2 Mitral Valve MV E Nqydrmfc09.9cm/sMV DECEL WQSK668aw MV A Guvtodsd66.6cm/sMV XYB97tp E/A Ratio0.9MVA (PHT)2.54cm2 TDI E/Lateral E'13.2E/Medial E'15.1 Pulmonary Valve PV Peak Wgpvrxsk320.1cm/sPV Peak Grad.5mmHg Tricuspid Valve TR P. Zvcrevmt683dn/sTR Peak Gr.20mmHg Pulmonary Vein S1 Jgirvcjb75.1cm/sD2 Khnxucsf39.1cm/s LEFT VENTRICLE The left ventricle is normal size. There is normal left ventricular wall thickness. The left ventricu lar systolic function is normal. The Ejection Fraction is 50-55%. There is normal LV segmental wall m otion. Transmitral Doppler flow pattern is Grade I-abnormal relaxation pattern. No left ventricle thr ombus noted on this study. There is no ventricular septal defect visualized. There is no left ventric ular aneurysm. There is no mass noted in the left ventricle. RIGHT VENTRICLE The right ventricle is normal size. There is normal right ventricular wall thickness. The right ventr icular systolic function is normal. ATRIA The left atrium is moderately dilated. The right atrium size is normal. The interatrial septum is int act with no evidence for an atrial septal defect or patent foramen ovale as noted on 2-D or Doppler i maging. AORTIC VALVE The aortic valve is normal in structure and function. Doppler and Color Flow revealed no significant aortic regurgitation. There is no significant aortic valvular stenosis. There is no aortic valvular v egetation. MITRAL VALVE There is no evidence of mitral valve prolapse. There is no mitral valve stenosis. Doppler and Color-f low revealed mild mitral regurgitation. TRICUSPID VALVE The tricuspid valve is normal in structure and function. Doppler and Color Flow revealed trace tricus pid regurgitation. There is no tricuspid valve stenosis. PULMONIC VALVE The pulmonary valve is normal in structure and function. Doppler and Color Flow revealed no pulmonic valvular regurgitation. There is no pulmonic valvular stenosis. GREAT VESSELS The aortic root is normal in size. The ascending aorta is normal in size. The pulmonary artery is nor mal. The IVC is normal in size and collapses >50% with inspiration. PERICARDIAL EFFUSION There is no pleural effusion. There is no evidence of significant pericardial effusion. Critical Notification Critical Value: No <Conclusion> The left ventricular systolic function is normal. The Ejection Fraction is 50-55%. There is normal LV segmental wall motion. Transmitral Doppler flow pattern is Grade I-abnormal relaxation pattern. Mild mitral regurgitation. Trace tricuspid regurgitation. There is no evidence of significant pericardial effusion. Signed by : Cain Beverly, Electronically Approved : 11/05/2021 10:59:56
== END ==
LOC: ECHO 07:40
PROVIDERS: ATTEND Internal Medicine Cardiovascular Disease
DX: I34.0 Nonrheumatic mitral (valve) insufficiency (principal); I42.9 Cardiomyopathy, unspecified
CPT/HCPCS: 93306; C8929

== ENCOUNTER 2021-12-06 19:50 | Emergency (ER) | payer MEDICARE ==
[~2021-12-06] VITALS: Ht 167.6 cm; Wt 142.0 kg
[2021-12-06] MEDS ORDERED: LIDOCAINE 1% Multi-Dose 20 ML VIAL. INJ ONE (20:15)
[2021-12-06] MEDS ORDERED: DIPHTH,PERTUSS(ACELL),TET TOX 0.5 ML DISP.SYRIN. VAX IM ONE (20:15)
--- NOTE | 2021-12-06 20:19 | PHYS DOC ---
Past Medical History Past Medical History: CHF, Diabetes-Type II, High Cholesterol, Hypertension, Vascular Disease, Other Additional Past Medical Histor: VENOUS INSUFF Past Surgical History: No Surgical History Smoking Status: Never Smoker Alcohol Use: None Drug Use: None General Adult EDM: Chief Complaint: LACERATION/AVULSION HPI: HPI: Patient is a 51-year-old male that presents with a laceration to the fourth toe of the left foot. Patient states around 1 PM today he was babysitting his granddaughter stepped on a wooden toy with bare feet, and sustained a laceration to the fourth toe left foot, he states his blood on and off since 1:00 today, it was not until his took a look at this that he noted that the laceration was that extensive. Patient does have a past medical history of diabetes and slow healing wounds in the past on his legs, and has been seen in the wound care clinic for evaluation and management of wounds in the past. Patient is unsure of when his last tetanus shot was Review of Systems: Review of Systems: Constitutional: Denies fever or chills. [] Eyes: Denies change in visual acuity. [] HENT: Denies nasal congestion or sore throat. [] Respiratory: Denies cough or shortness of breath. [] Cardiovascular: Denies chest pain or edema. [] GI: Denies abdominal pain, nausea, vomiting, bloody stools or diarrhea. [] : Denies dysuria. [] Musculoskeletal: Denies back pain or joint pain. [] Integument: Laceration to left foot fourth toe Neurologic: Denies headache, focal weakness or sensory changes. [] Endocrine: Denies polyuria or polydipsia. [] Lymphatic: Denies swollen glands. [] Psychiatric: Denies depression or anxiety. [] Heart Score: C/O Chest Pain: No Risk Factors: Risk Factors: DM, Current or recent (<one month) smoker, HTN, HLP, family history of CAD, obesity. Risk Scores: Score 0 - 3: 2.5% MACE over next 6 weeks - Discharge Home Score 4 - 6: 20.3% MACE over next 6 weeks - Admit for Clinical Observation Score 7 - 10: 72.7% MACE over next 6 weeks - Early Invasive Strategies Allergies: Allergies: Allergies Coded Allergies Type Severity Reaction Last Updated Verified No Known Drug Allergies 05/09/15 No Physical Exam: PE: Constitutional: Well developed, well nourished, no acute distress, non-toxic appearance. [] HENT: Normocephalic, atraumatic, bilateral external ears normal, oropharynx moist, no oral exudates, nose normal. [] Eyes: PERRLA, EOMI, conjunctiva normal, no discharge. [] Neck: Normal range of motion, no tenderness, supple, no stridor. [] Cardiovascular:Heart rate regular rhythm, no murmur [] Lungs & Thorax: Bilateral breath sounds clear to auscultation [] Abdomen: Bowel sounds normal, soft, no tenderness, no masses, no pulsatile masses. [] Skin: Patient has a 1 cm laceration at the base of the fourth toe on the underside of the toe, no active bleeding noted Back: No tenderness, no CVA tenderness. [] Extremities: Left fourth toe sensory and vascular is intact distal to the injury, cap refill is less than 2 seconds, no active bleeding at this time Neurologic: Alert and oriented X 3, normal motor function, normal sensory function, no focal deficits noted. [] Psychologic: Affect normal, judgement normal, mood normal. [] Current Patient Data: Vital Signs: Vital Signs Date Time Temp Pulse Resp B/P (MAP) Pulse Ox O2 Delivery O2 Flow Rate FiO2 12/06/21 19:50 97.9 78 20 183/84 (117) 97 Room Air 97.9 EKG: EKG: [] Radiology/Procedures: Radiology/Procedures: Indication: Laceration to the base of the fourth toe on the left foot Procedure: The patient was placed in a supine position, foot was cleansed with Betadine solution, lidocaine 1% without epinephrine for mL was injected into the wound, after appropriate anesthetizing the skin, laceration was irrigated with 100 mL of normal saline, 3 interrupted sutures using using 3-0 Ethilon were placed, dressing was applied by nursing staff postop shoe was placed on foot to help protect the wound. Total repaired wound length: 1.5 cm The patient tolerated the procedure well Complications: None Course & Med Decision Making: Course & Med Decision Making Pertinent Labs and Imaging studies reviewed. (See chart for details) Suture repair was completed, patient and were both advised to view the wound twice daily to watch for any signs and symptoms of infection, cleanse the wound twice daily with antibacterial soap, patient will also be given some clindamycin due to the nature of the wound and the patient's past medical history of insulin-dependent diabetes. Postop shoe will also be placed to help with keeping the wound stable. I did advise patient to follow-up with Dr. Dee sometime this week for him to evaluate the wound, sutures will need to be removed in 12 to 14 days. Patient is advised to return here to the emergency department for any signs and symptoms of infection or any other concerns he may have. Dragon Disclaimer: Dragon Disclaimer: This electronic medical record was generated, in whole or in part, using a voice recognition dictation system. Departure Departure Impression: Primary Impression: Laceration of toe of left foot Qualified Codes: S91.115A - Laceration without foreign body of left lesser toe(s) without damage to nail, initial encounter Disposition: HOME / SELF CARE / HOMELESS Condition: STABLE Referrals: JUANITO DEE MD (PCP) Patient Instructions: Laceration Care, Adult Additional Instructions: Clindamycin 300 mg take 1 tablet every 12 hours for 7 days Cleanse the wound twice daily with mild soap and water watching for any signs and symptoms of infection Wear postop shoe to help with wound stability Return here to the emergency department or follow-up with Dr. Dee in 10 to 12 days to have the sutures removed Follow-up with Dr. Dee this week for him to observe the wound and to track for any complications Return here to the emergency department for any signs and symptoms of infection or any concerns you may have. Scripts Clindamycin Hcl (CLINDAMYCIN HCL) 300 Mg Capsule 1 CAP PO BID, #[id number] CAP Prov: AARON SANCHEZ PAID SEARCH ANALYST 12/06/21 AARON SANCHEZ PAID SEARCH ANALYST Dec 06, 2021 20:19
[2021-12-06] MEDS ORDERED: CLINDAMYCIN HCL 150 MG CAPSULE. PO ONE (21:00)
[2021-12-06] MEDS ORDERED: CLIN-94 PO (21:08)
[2021-12-06 21:50] VITALS: BP 176/79
== END 2021-12-06 22:28 | disposition home or self-care (01) ==
LOC: ER 19:50
DX: S91.115A Laceration without foreign body of left lesser toe(s) without damage to nail, initial encounter (principal); I11.0 Hypertensive heart disease with heart failure; I50.9 Heart failure, unspecified; E78.00 Pure hypercholesterolemia, unspecified; E11.9 Type 2 diabetes mellitus without complications; W22.09XA Striking against other stationary object, initial encounter; Y93.89 Activity, other specified; Y92.89 Other specified places as the place of occurrence of the external cause; Y99.8 Other external cause status
CPT/HCPCS: 12001; 90471; 90715; 99283; J3490